=== PATIENT | female | born 1985 | race Caucasian/White ===

== ENCOUNTER 2023-01-07 07:36 | Outpatient (CLI) | payer OTHER, MEDICAID ==
[2023-01-08 06:10] LABS: CYTOMEGALOVIRUS (CMV) AB IGG <0.60 U/mL (0.00-0.59); CYTOMEGALOVIRUS (CMV) AB IGM <30.0 AU/mL (0.0-29.9)
== END 2023-01-07 07:37 | disposition home or self-care (01) ==
LOC: LAB.S 07:36
PROVIDERS: ATTEND Obstetrics & Gynecology Reproductive Endocrinology
DX: Z00.00 Encounter for general adult medical examination without abnormal findings (principal); Z11.4 Encounter for screening for human immunodeficiency virus [HIV]
CPT/HCPCS: 36415; 84146; 86644; 86645

== ENCOUNTER 2023-03-26 21:11 | Emergency (ER) | payer MEDICAID, OTHER ==
[2023-03-26 21:39] LABS: BASOPHILS # (AUTO) 0.1 10^3/uL (0.0-0.1); BASOPHILS % (AUTO) 0.4 %; EOSINOPHILS # (AUTO) 0.3 10^3/uL (0.0-0.7); EOSINOPHILS % (AUTO) 2.9 %; HCT - HEMATOCRIT 36.2 % (37.0-47.0); HGB - HEMOGLOBIN 12.5 g/dL (12.0-16.0); LYMPHOCYTES # (AUTO) 3.3 10^3/uL (1.5-3.5); LYMPHOCYTES % (AUTO) 28.8 %; MEAN CORPUSCULAR HEMOGLOBIN 31.6 pg (27.0-31.0); MEAN CORPUSCULAR HGB CONC 34.5 g/dL (32.0-36.0); MEAN CORPUSCULAR VOLUME 91.4 fL (81.0-99.0); MEAN PLATELET VOLUME 10.1 fL (7.9-10.8); MONOCYTES # (AUTO) 0.9 10^3/uL (0.0-1.0); MONOCYTES % (AUTO) 8.1 %; NEUTROPHILS # (AUTO) 6.7 10^3/uL (1.5-6.6); NEUTROPHILS % (AUTO) 59.5 %; PLT - PLATELET COUNT 225 10^3/uL (130-450); RED BLOOD COUNT 3.96 10^6/uL (4.20-5.40); RED CELL DISTRIBUTION WIDTH 11.9 % (12.0-15.0); WHITE BLOOD COUNT 11.3 x10^3/uL (4.8-10.8)
[2023-03-26 21:50] LABS: CALCIUM 8.9 mg/dL (8.5-10.3); CREATININE 0.6 mg/dL (0.4-1.0); POTASSIUM 3.5 mmol/L (3.5-5.0)
[2023-03-26 22:02] VITALS: BP 110/64; O2SAT 98
--- NOTE | 2023-03-26 23:19 | ED Physician Documentation ---
History of Present Illness - Stated complaint Stated Complaint: PREG/BLEEDING - Chief complaint Chief Complaint: Abd Pain - History obtained from History obtained from: Patient - Additonal information Additional information: 37yF, previously healthy at 10wga by dates p/w passage of a large blood clot followed by vaginal spotting today. denies abd pain, urinary sx. Review of Systems : reports: Vaginal bleeding. 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 : None HEENT: None Psych: None Musculoskeletal: None Derm: None - Past Surgical History Past Surgical History: No - Present Medications Home Medications: Ambulatory Orders Medication Instructions Recorded Confirmed No Known Home Medications 03/26/23 03/26/23 - Allergies Allergies/Adverse Reactions: Allergies Allergy/AdvReac Type Severity Reaction Status Date / Time No Known Drug Allergies Allergy Verified 03/26/23 21:51 - Social History Does the pt smoke?: No Smoking Status: Never smoker Does the pt drink ETOH?: No Does the pt have substance abuse?: No - Immunizations Immunizations are current?: Yes - POLST Patient has POLST: No PD ED PE NORMAL - Vitals Vital signs reviewed: Yes - General General: Alert and oriented X 3, No acute distress, Well developed/nourished - HEENT HEENT: Atraumatic, PERRL, EOMI, Moist mucous membranes, Pharynx benign - Neck Neck: Supple, no meningeal sign - Cardiac Cardiac: RRR - Respiratory Respiratory: No respiratory distress, Clear bilaterally - Abdomen Abdomen: Non tender, Non distended - Back Back: No CVA TTP - Derm Derm: Normal color, Warm and dry - Extremities Extremities: No deformity - Neuro Neuro: Alert and oriented X 3 Results - Vitals Vitals: Vital Signs - 24 hr 03/26/23 21:44 Temperature 36.8 C Heart Rate 68 Respiratory 19 Rate Blood Pressure 110/64 O2 Saturation 98 Oxygen O2 Source Room air - Labs Labs: Laboratory Tests 03/26/23 03/26/23 03/26/23 21:32 21:32 21:32 WBC 11.3 H RBC 3.96 L Hgb 12.5 Hct 36.2 L MCV 91.4 MCH 31.6 H MCHC 34.5 RDW 11.9 L Plt Count 225 MPV 10.1 Neut # (Auto) 6.7 H Lymph # (Auto) 3.3 [place] # (Auto) 0.9 Eos # (Auto) 0.3 Baso # (Auto) 0.1 Absolute Nucleated RBC 0.00 Nucleated RBC % 0.0 Sodium 136 Potassium 3.5 Chloride 108 Carbon Dioxide 22 Anion Gap 6.0 BUN 14 Creatinine 0.6 Estimated GFR (MDRD) 114 Glucose 68 L POC Whole Bld Glucose Calcium 8.9 Beta HCG, Quant 692217.0 Blood Type O POSITIVE 03/26/23 23:37 WBC RBC Hgb Hct MCV MCH MCHC RDW Plt Count MPV Neut # (Auto) Lymph # (Auto) [place] # (Auto) Eos # (Auto) Baso # (Auto) Absolute Nucleated RBC Nucleated RBC % Sodium Potassium Chloride Carbon Dioxide Anion Gap BUN Creatinine Estimated GFR (MDRD) Glucose POC Whole Bld Glucose 116 H Calcium Beta HCG, Quant Blood Type PD Medical Decision Making - ED course ED course: 37-year-old female, G1, P0 at 10 weeks gestation presents with vaginal spotting today. CBC, abdominal panel, type and screen, hCG ordered. Her hCG is appropriate for gestational age. Glucose was 68. Food was provided and glucose will be rechecked. Ultrasound showed single live intrauterine gestation. Blood type is O+ therefore does not need RhoGAM. 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 Vaginal precautions given. Return precautions given. Departure - Departure Disposition: 01 Home, Self Care Clinical Impression: Vaginal bleeding affecting early Condition: Stable Instructions: ED Miscarriage Poss Comments: You were seen in the emergency department for Vaginal bleeding in early . Your blood type is O+. Your ultrasound uncovered no issues at this time but you will need to follow-up promptly with your dials inspector and avoid any insertion of objects into the vagina including sexual intercourse until cleared by your dials inspector. Please also avoid heavy activities including bicycle riding or horseback riding. Please return to the emergency department if you have any new or worsening symptoms or other concerns. HCG blood level was 100,[phone] today. Forms: PCP List
--- NOTE | 2023-03-27 00:20 | Ultrasound Report ---
PROCEDURE: OB First Trimester INDICATIONS: PREG VB OUTSIDE/PRIOR DATING DATA: Last menstrual period (LMP): 01/11/2023. LMP-based estimated date of delivery (GUIDO): 10/18/2023. First dating scan (date and location): 03/26/2023. Estimated date of delivery (GUIDO) from first dating scan: 10/14/2023. TECHNIQUE: Real-time transabdominal scanning was performed of the fetus and maternal pelvic organs, with image d ocumentation. COMPARISON: None. FINDINGS: Embryo: There is an intrauterine with a pole demonstrating a crown-rump length of 4. 3 cm corresponding to a calculated gestational age of 11 weeks 1 day and estimated delivery date of . There is heart motion with a rate 164 bpm. Other: There is a heterogeneous perigestational region suggestive of a subchorionic hematoma measurin g 2.9 x 1.1 x 2.9 cm. Measurement variability in dating: +/- 4 weeks by LMP, +/- 7 days by mean sac diameter (use before 6 weeks gestation if crown-rump length not able to be measured), +/- 5 days by crown-rump length (6-12 weeks gestation). Maternal organs: Ovaries appear within normal size limits. There are small cysts within each ovary m easuring up to 2.0 cm on the right and 2.2 cm on the left. No definite adnexal masses. IMPRESSION: 1. Single living intrauterine with calculated gestational age of 7 weeks 1 day correspondin g to an estimated delivery date of 10/14/2023. 2. Suspected small subchorionic hematoma. Reviewed by: Ramy Swanson MD on 03/27/2023 12:18 AM PDT Approved by: Ramy Swanson MD on 03/27/2023 12:18 AM PDT Station ID: [id number]
== END 2023-03-26 23:56 | disposition home or self-care (01) ==
LOC: ED 21:11
DX: O20.9 Hemorrhage in early pregnancy, unspecified (principal); Z3A.10 10 weeks gestation of pregnancy
CPT/HCPCS: 36415; 80048; 84702; 85025; 86900; 86901; 99283; 99284

== ENCOUNTER 2023-03-28 22:13 | Outpatient (CLI) | payer OTHER ==
--- NOTE | 2023-03-29 00:53 | Ultrasound Report ---
PROCEDURE: OB First Trimester INDICATIONS: THREATENED OUTSIDE/PRIOR DATING DATA: Last menstrual period (LMP): 01/11/2023. LMP-based estimated date of delivery (GUIDO): 04/19/2024. First dating scan (date and location): 03/14/2023[facility]. Estimated date of delivery (GUIDO) from first dating scan: 10/16/2023. TECHNIQUE: Real-time scanning was performed of the fetus and maternal pelvic organs, with image documentation. COMPARISON: 03/26/2023 FINDINGS: Intrauterine gestational sac present. Embryo: A single live intrauterine is seen, with a heart rate of 169 bpm. Other: A small amount of likely. Gestational/subchorionic hemorrhage can be seen that today measures up to 2.5 cm, as on image 8. Measurement variability in dating: +/- 4 weeks by LMP, +/- 7 days by mean sac diameter (use before 6 weeks gestation if crown-rump length not able to be measured), +/- 5 days by crown-rump length (6-12 weeks gestation). Maternal organs: Ovaries demonstrate apparent bilateral corpus luteum cysts. The cervix is closed and measures 3.1 cm in length. IMPRESSION: Single live intrauterine . Likely small amount of subchorionic hemorrhage, which measures smaller on the current study than on t he prior. Closed cervix, measuring 3.1 cm in length. Please consider short-term follow-up. Reviewed by: Leo Jones MD on 03/28/2023 11:52 PM [facility] Approved by: Leo Jones MD on 03/28/2023 11:52 PM [facility] Station ID: [id number]
== END 2023-03-28 22:14 | disposition home or self-care (01) ==
LOC: DI 22:13
DX: O20.0 Threatened abortion (principal); Z3A.00 Weeks of gestation of pregnancy not specified